=== PATIENT | female | born 1950 | race Native Hawaiian/Other Pacific Islander ===

== ENCOUNTER 2016-10-09 10:21 | Outpatient (CLI) | payer OTHER ==
[2016-10-09 10:49] LABS: PLATELET COUNT 278 K/uL (152-353)
[2016-10-09 11:24] LABS: POTASSIUM 4.3 mmol/L (3.6-5.2); SODIUM 136 mmol/L (136-145)
== END 2016-10-09 23:02 | disposition home or self-care (01) ==
LOC: LABW 10:21
PROVIDERS: Nurse Practitioner
DX: I10 Essential (primary) hypertension (principal); E55.9 Vitamin D deficiency, unspecified; E78.00 Pure hypercholesterolemia, unspecified; E03.8 Other specified hypothyroidism; D64.9 Anemia, unspecified
CPT/HCPCS: 36415; 80053; 80061; 82306; 83540; 84443; 85027

== ENCOUNTER 2017-11-15 08:58 | Outpatient (CLI) | payer OTHER | END 2017-11-15 22:55 | disposition home or self-care (01) | LOC: MAMMO 08:58 | DX: Z12.31 Encounter for screening mammogram for malignant neoplasm of breast (principal) ==

== ENCOUNTER 2018-11-18 08:20 | Outpatient (CLI) | payer OTHER | END 2018-11-18 19:20 | disposition home or self-care (01) | LOC: MAMMO 08:20 | DX: Z12.39 Encounter for other screening for malignant neoplasm of breast (principal); Z12.31 Encounter for screening mammogram for malignant neoplasm of breast; R10.31 Right lower quadrant pain ==

== ENCOUNTER 2018-11-22 07:17 | Outpatient (CLI) | payer OTHER | END 2018-11-22 22:25 | disposition home or self-care (01) | LOC: MRI 07:17 | DX: R19.00 Intra-abdominal and pelvic swelling, mass and lump, unspecified site (principal) | CPT/HCPCS: 36415; 82565; 84520; A9576 ==

== ENCOUNTER 2019-10-15 13:23 | Outpatient (CLI) | payer OTHER ==
[2019-10-15 13:45] LABS: PLATELET COUNT 288 K/uL (152-353)
[2019-10-15 14:06] LABS: POTASSIUM 4.5 mmol/L (3.6-5.2)
== END 2019-10-15 21:17 | disposition home or self-care (01) ==
LOC: LAB 13:23
PROVIDERS: Nurse Practitioner Family
DX: Z00.00 Encounter for general adult medical examination without abnormal findings (principal); E03.9 Hypothyroidism, unspecified; E78.00 Pure hypercholesterolemia, unspecified; I10 Essential (primary) hypertension; E55.9 Vitamin D deficiency, unspecified; R73.09 Other abnormal glucose; E53.8 Deficiency of other specified B group vitamins; Z79.899 Other long term (current) drug therapy
CPT/HCPCS: 80053; 80061; 82306; 82607; 83036; 84439; 84443; 84481; 85027

== ENCOUNTER 2020-05-04 14:12 | Outpatient (CLI) | payer OTHER | END 2020-05-04 19:24 | disposition home or self-care (01) | LOC: LAB 14:12 | DX: E03.8 Other specified hypothyroidism (principal) | CPT/HCPCS: 84439; 84443; 84481; 86376 ==

== ENCOUNTER 2020-11-02 14:50 | Outpatient (CLI) | payer OTHER ==
[2020-11-02 15:07] LABS: PLATELET COUNT 252 K/uL (152-353)
[2020-11-02 15:24] LABS: POTASSIUM 4.4 mmol/L (3.6-5.2)
== END 2020-11-02 19:28 | disposition home or self-care (01) ==
LOC: LAB 14:50
PROVIDERS: ATTEND Nurse Practitioner Family
DX: E03.8 Other specified hypothyroidism (principal); R53.83 Other fatigue; I10 Essential (primary) hypertension; R73.09 Other abnormal glucose; E55.9 Vitamin D deficiency, unspecified; E53.8 Deficiency of other specified B group vitamins; Z79.899 Other long term (current) drug therapy
CPT/HCPCS: 80053; 80061; 82306; 83036; 84439; 84443; 84481; 85027

== ENCOUNTER 2021-04-26 15:36 | Outpatient (CLI) | payer OTHER ==
[2021-04-26 15:53] LABS: PLATELET COUNT 294 K/uL (152-353)
[2021-04-26 16:37] LABS: POTASSIUM 4.4 mmol/L (3.6-5.2)
== END 2021-04-26 20:55 | disposition home or self-care (01) ==
LOC: LAB 15:36
PROVIDERS: ATTEND Nurse Practitioner Family
DX: E03.8 Other specified hypothyroidism (principal); R53.83 Other fatigue; E78.00 Pure hypercholesterolemia, unspecified; E53.8 Deficiency of other specified B group vitamins; I10 Essential (primary) hypertension; E55.9 Vitamin D deficiency, unspecified; R73.09 Other abnormal glucose; D64.9 Anemia, unspecified
CPT/HCPCS: 80053; 80061; 82306; 82607; 82728; 82746; 83036; 83540; 84439; 84443; 85027

== ENCOUNTER 2021-11-08 16:47 | Outpatient (CLI) | payer OTHER ==
[2021-11-08 17:55] LABS: PLATELET COUNT 308 K/uL (152-353)
[2021-11-08 18:32] LABS: POTASSIUM 4.6 mmol/L (3.6-5.2)
== END 2021-11-08 19:06 | disposition home or self-care (01) ==
LOC: LAB 16:47
PROVIDERS: ATTEND Nurse Practitioner Family
DX: E03.8 Other specified hypothyroidism (principal); R53.83 Other fatigue; R73.09 Other abnormal glucose; I10 Essential (primary) hypertension; E53.8 Deficiency of other specified B group vitamins; E55.9 Vitamin D deficiency, unspecified; R53.81 Other malaise; D64.89 Other specified anemias; Z79.899 Other long term (current) drug therapy
CPT/HCPCS: 80053; 80061; 82306; 82607; 83036; 84439; 84443; 85007; 85027

== ENCOUNTER 2022-11-22 08:48 | Outpatient (CLI) | payer OTHER | END 2022-11-22 19:17 | disposition home or self-care (01) | LOC: MAMMO 08:48 | PROVIDERS: ATTEND Nurse Practitioner Family | DX: Z12.31 Encounter for screening mammogram for malignant neoplasm of breast (principal) ==